=== PATIENT | male | born 2000 | race Asian ===

== ENCOUNTER 2020-11-01 19:52 | Emergency (ER) | payer OTHER ==
--- NOTE | 2020-11-01 23:38 | ED Physician Documentation ---
History of Present Illness - Stated complaint Stated Complaint: DIZZY - Chief complaint Chief Complaint: Neuro - History obtained from History obtained from: Patient - Additonal information Additional information: 20-year-old man, previously healthy presents with progressive weakness since this past . Patient states that he had a dizzy spell while hugging his girlfriend and his legs gave out on Monday, causing him to fall backwards and hit his head against the wall without LOC. He has been dizzy on and off since that time and it appears to be positional, worse when lying flat. He also has sensation of fullness in the mid occiput where he hit his head. Denies other neurological deficits. Review of Systems Ten Systems: 10 systems reviewed and negative Constitutional: reports: Fatigue. denies: Fever, Chills Eyes: denies: Loss of vision, Decreased vision, Photophobia Ears: denies: Loss of hearing, Drainage/discharge GI: denies: Nausea, Vomiting Neurologic: reports: Head injury. denies: Focal weakness, Numbness, Difficulty speaking, Headache, LOC PD PAST MEDICAL HISTORY - Past Medical History Past Medical History: No - Past Surgical History Past Surgical History: No - Present Medications Home Medications: Ambulatory Orders Medication Instructions Recorded Confirmed Meclizine [Antivert] 12.5 mg PO Q6H PRN #20 tablet 11/01/20 - Allergies Allergies/Adverse Reactions: Allergies Allergy/AdvReac Type Severity Reaction Status Date / Time No Known Drug Allergies Allergy Verified 11/01/20 20:09 - Social History Does the pt smoke?: No Smoking Status: Never smoker Does the pt drink ETOH?: No Does the pt have substance abuse?: No - Immunizations Immunizations are current?: Yes - POLST Patient has POLST: No PD ED PE NORMAL - Vitals Vital signs reviewed: Yes - General General: Alert and oriented X 3, No acute distress, Well developed/nourished - HEENT HEENT: Atraumatic, PERRL, EOMI - Neck Neck: Supple, no meningeal sign - Cardiac Cardiac: RRR - Respiratory Respiratory: No respiratory distress, Clear bilaterally - Abdomen Abdomen: Non tender, Non distended - Derm Derm: Normal color, Warm and dry - Extremities Extremities: No deformity - Neuro Neuro: Alert and oriented X 3, director of primary care 2-12 intact, No motor deficit, No sensory deficit, Normal speech, Other (Ambulatory without difficulty) - Psych Psych: Normal mood, Normal affect Results - Vitals Vitals: Vital Signs - 24 hr 11/01/20 11/01/20 11/01/20 20:02 20:16 21:14 Temperature 36.3 C L 36.3 C L Heart Rate 65 65 Heart Rate [ 68 Sitting] Heart Rate [ 75 Standing] Heart Rate [ 71 Supine] Respiratory 16 16 Rate Blood Pressure 137/72 H 137/72 H Blood Pressure 127/65 [Sitting] Blood Pressure 137/65 H [Standing] Blood Pressure 130/74 [Supine] O2 Saturation 100 100 11/01/20 11/01/20 22:12 23:50 Temperature 36.6 C Heart Rate 75 69 Heart Rate [ Sitting] Heart Rate [ Standing] Heart Rate [ Supine] Respiratory 12 14 Rate Blood Pressure 119/66 124/79 Blood Pressure [Sitting] Blood Pressure [Standing] Blood Pressure [Supine] O2 Saturation 100 97 Oxygen O2 Source Room air PD MEDICAL DECISION MAKING - ED course ED course: 20-year-old man presents with vertiginous symptoms. Negative hints exam. Head CT negative. Return precautions given. He will follow-up with his primary doctor Departure - Departure Disposition: Home, Self Care Clinical Impression: Dizziness Condition: Good Instructions: ED Dizziness [facility] Prescriptions: Meclizine [Antivert] 12.5 mg PO Q6H PRN #20 tablet PRN Reason: Per Physician Order Comments: You are seen in the emergency department for dizziness. Your head CT was normal and your vital signs were normal as well as your EKG. Return to the emergency department if you have any new or worsening symptoms. Follow-up with your primary doctor. Discharge Date/Time: 11/01/20 23:50
[2020-11-01] MEDS ORDERED: MECLIZINE 12.5 MG TABLET PO STA (23:40)
[2020-11-01 23:51] VITALS: BP 124/79
--- NOTE | 2020-11-02 08:09 | CT Report ---
PROCEDURE: HEAD WO INDICATIONS: occipital fullness, vertigo TECHNIQUE: Noncontrast 4.5 mm thick angled axial sections acquired from the foramen magnum to the vertex. For r adiation dose reduction, the following was used: automated exposure control, adjustment of mA and/or kV according to patient size. COMPARISON: None. FINDINGS: Image quality: Excellent. CSF spaces: Basal cisterns are patent. No extra-axial fluid collections. Ventricles are normal in size and shape. Brain: No midline shift. No intracranial masses or hemorrhage. Hoffman-white matter interface is norm al. Skull and face: Calvarium and visualized facial bones are intact, without suspicious lesions. Sinuses: Visualized sinuses and mastoids are clear. IMPRESSION: No acute intracranial abnormality Findings concur with preliminary findings by [facility] Reviewed by: Walker Bullard on 11/02/2020 8:08 AM PDT Approved by: Walker Bullard on 11/02/2020 8:08 AM PDT Station ID: [id number]
== END 2020-11-01 23:50 | disposition home or self-care (01) ==
LOC: ED 19:52
DX: R42 Dizziness and giddiness (principal); R53.1 Weakness; S09.90XA Unspecified injury of head, initial encounter; W18.39XA Other fall on same level, initial encounter
CPT/HCPCS: 70450; 93005; 99284; A9270